=== PATIENT | female | born 1930 | race Caucasian/White ===

== ENCOUNTER → 2017-02-05 | Day surgery (SDC) | payer OTHER ==
[~2017-02-05] MED LIST: ALPHAGAN-P OPHTH 1 DOSE AFFEYE ONE; TETRACAINE 0.5% OPHTH 1 DOSE AFFEYE ONE
[2017-02-05 13:57] VITALS: BP 118/55
== END ==
LOC: SURG1 13:34
PROVIDERS: ATTEND Ophthalmology
PROC: 08QC3ZZ Repair Right Iris, Percutaneous Approach (ICD-10-PCS; principal; 2017-02-05 22:30)
DX: H40.1113 Primary open-angle glaucoma, right eye, severe stage (principal)
CPT/HCPCS: 65855

== ENCOUNTER 2017-02-19 12:53 | Day surgery (SDC) | payer OTHER ==
[2017-02-19] MEDS ORDERED: TETRACAINE 0.5% OPHTH 1 DOSE AFFEYE ONE ×2 (13:18→14:12)
[2017-02-19] MEDS ORDERED: ALPHAGAN-P OPHTH 1 DOSE AFFEYE ONE (13:19)
[2017-02-19 14:56] VITALS: BP 134/71
== END 2017-02-19 14:55 | disposition home or self-care (01) ==
LOC: SURG1 12:53
PROVIDERS: ATTEND Ophthalmology
PROC: 08QC3ZZ Repair Right Iris, Percutaneous Approach (ICD-10-PCS; principal; 2017-02-19 22:00)
DX: H40.1113 Primary open-angle glaucoma, right eye, severe stage (principal)
CPT/HCPCS: 65855